=== PATIENT | male | born 1955 | race Caucasian/White ===

== ENCOUNTER 2016-05-28 19:37 | Emergency (ER) | payer MEDICAID ==
[2016-05-28 19:56] VITALS: BMI 26.6
--- NOTE | 2016-05-28 20:01 | EDPRACDOC ---
ED Seizure HPI - General Information Chief Complaint: Seizure Stated Complaint: SEIZURE Time Seen by Provider: 05/28/16 19:57 Information Source: Patient Mode Of Arrival: Ambulance Home Medications: Home Medications MetFORMIN (Immediate Release) [GLUCOPHAGE Immed Release] 500 mg PO BID(MISBAH) Lisinopril 10 mg PO DAILY #120 tablet 09/13/15 Levetiracetam [Keppra] 500 mg PO BID #60 tab 05/28/16 Spironolactone 50 mg PO DAILY #30 tablet 05/28/16 Allergies/Adverse Reactions: Allergies Allergy/AdvReac Type Severity Reaction Status Date / Time No Known Drug Allergies Allergy Unknown Unknown Verified 05/28/16 20:17 - 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 PATIENT HAS HAD 4 SEIZURES OVER THE LAST COUPLE OF YEARS. DOES NOT TAKES MEDS FOR THIS. 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 Witnessed: UNKNOWN Postictal: Yes Episodes: Reports: single episode today Compliant with Seizure Medication: Yes Seizure Type: Reports: [place] Prior to Seizure: Reports: Normal During Seizure: Reports: Deviation of Eyes, Loss of Consciousness Immediately After Seizure: Reports: Confusion Associated Signs & Symptoms: Reports: Confusion - [place] Coma scale Coma Scale Eye Opening: Spontaneous Coma Scale Motor: Obeys Commands Coma Scale Verbal: Oriented Coma Scale Total: 15 - Treatment Prior to ED Arrival Reported Medications/Treatment [facility] Treatment BLS IV No ED Past Medical History - History Reviewed Yes Nurses notes reviewed and agree except as marked Travel Outside of [place] in the Last 3 Months?: No - Patient Medical History Neurological History: Reports: Seizures. Denies: Cerebrovascular Accident Cardiac History: Reports: Hypertension, Hypercholesterolemia, Valvular Heart Disease GI/ History: Reports: Kidney (Renal Surgery), Urinary Tract Infection, Kidney Stones, Liver Failure (cirrhosis, treated hepatitis-C but still with residual Hep C.), Gastroesophageal Reflux Musculoskeletal History: Reports: Osteoarthritis Psychological History: Reports: Depression, Anxiety. Denies: Substance Use Disorder Systemic History: Reports: Diabetes (Type 2.). Denies: Cancer Surgical History: Reports: Cholecystectomy, Other (LIVER BX, removal kidney stones (Dr. Keith).) - Family Medical History Reports: Hypertension (FATHER), Diabetes (FATHER), Cancer (FATHER--LUNG CA, Brother-Throat). Denies: Stroke, Cardiac Disorders - Social Medical History Smoking Status: Heavy tobacco smoker (5 or more cigarettes/day or daily pipe/ cigar) Social History: Denies: Substance Use Disorder Lives With: Family Lives In: Home EDM Review of Systems - Review of Systems ROS Negative Except as Marked: Yes All systems reviewed and were negative except as marked Constitutional: No Symptoms Reported. negative: Fever, Chills, Weakness, Fatigue, Loss of Appetite Eyes: No Symptoms Reported. negative: Redness, Blurred Vision, Double Vision, Discharge, Pain, Light Sensitive, Photophobia Ears: No Symptoms Reported. negative: Pain, Hearing Loss, Drainage, Ear Pulling Throat: No Symptoms Reported. negative: Pain, Swelling Nose: No Symptoms Reported. negative: Congestion, Bleeding, Discharge, Injection, Swelling, Deformity, Ecchymosis, Tender, Abrasion, Laceration Mouth: No Symptoms Reported. negative: Pain, Drooling Respiratory: No Symptoms Reported. negative: Cough, Brassy Cough, Barky Cough, Shortness of Breath, Wheezing, Hemoptysis Cardiovascular: No Symptoms Reported. negative: Chest Pain, Palpitations, Syncope, Edema, Orthopnea, PND, Skin Mottling, Cyanosis Gastrointestinal: No Symptoms Reported. negative: Pain, Constipation, Nausea, Vomiting, Diarrhea, Melena, Formula Intolerance Genitourinary: No Symptoms Reported. negative: Dysuria, Hematuria, Frequency, Discharge, Bleeding, Testicular Pain, Neurological: Seizure. negative: Dizziness, Gait Difficulty, Headache, Numbness , Speech Difficulty, Weakness Musculoskeletal: No Symptoms Reported. negative: Neck, Chestwall, Ribs, Back, Shoulder, Arm, Elbow, Forearm, Wrist, Hand, Pelvis, Hip, Femur, Knee, Leg, Ankle , Foot Integumentary: No Symptoms Reported. negative: Itching, Rash, Bruising, Wound Allergic/Immunologic: No Symptoms Reported. negative: Hives, Itching Hematologic: No Symptoms Reported. negative: Lymphadenopathy, Easy Bruising, Easy Bleeding Endocrine: No Symptoms Reported. negative: Weight Gain, Weight Loss Psychiatric: No Symptoms Reported. negative: Anxiety, Depression, Hallucinations, Insomnia, Suicidal - Physical Exam Constitutional: Alert (Awake), No apparent distress Oriented to: Time, Person, Place Last recorded Vital Signs: Last Vital Signs Temp 98 F 05/28/16 19:48 Pulse 94 05/28/16 19:48 Resp 20 05/28/16 19:56 BP 154/64 05/28/16 19:48 Pulse Ox 100 05/28/16 19:48 Oxygen Pulse Oxygen Saturation 100 O2 Device Room Air Oxygen Flow Rate Fraction of Inspired Oxygen ( FIO2) - HEENT Head: Normal ( normocephalic) Eye Exam: Normal (PERRL, EOMI, Sclera white) Oropharynx: Normal (Pharynx:Moist without exudate,Gums-no swelling) Tympanic Membrane: Normal ENT EAC: Normal TMJ: Normal Nose: No Symptoms Reported (septum midline) Neck: Normal (FROM, trachea at midline) - Respiratory/Cardiovascular Respiratory: Normal - CTA (BBS clear to auscultation without adventitious sounds ) Cardiovascular: Normal (RRR without murmur, gallop or rub) - GI Auscultation: Normal (NABS) Palpation: Normal (Soft,No rebound or guarding, non distended) Tenderness: Non tender Arevalo's Sign: Negative - Musculoskeletal Back: Normal (Non-Tender) Extremities: Normal (Normal tone, Pulses 2+ No cyanosis or edema, FROM) - Integumentary Skin: Normal, Warm, Dry Lymphatics: Normal (no adenopathy) - Neurologic Memory Impaired: Normal Motor Function: Normal (Normal tone, Pulses 2+ No cyanosis or edema, FROM) Cranial Nerve: Normal (CN II-X11 intact sensation, strength 5/5) Cerebellar: Normal Mood Description: Normal Perception: Normal - Re-evaluation Re-evaluation 2 Re-evaluation Time: 21:50 (PATIENT HAD SECOND SEIZURE- BIT TONGUE. POST ICTAL) - Results 05/28/16 20:11 05/28/16 20:11 - EKG EKG #1 EKG Time: 21:54 -: Yes EKG interpreted by me Rate: bpm: 165 [place]: RAD Rhythm: ST Block: None Hypertrophy: None ST: Normal - Additional Information PATIENT ADMITTED TO NOT TAKING LACTULOSE BECAUSE HE HAS DIARRHEA Decision Time to Discharge: 21:19 - Departure Yes I personally saw and evaluated the patient. Disposition: Trans. to Other Hospital ([facility]) Condition: Stable Final Diagnosis: Seizure, Ventricular tachyarrhythmia Cirrhosis Qualifiers: Hepatic cirrhosis type: unspecified hepatic cirrhosis Ascites presence: with ascites Qualified Code(s): K74.60 - Unspecified cirrhosis of liver Instructions: Seizures Education/Counseling Given To: Patient Education/Counseling Given Regarding: Diagnosis, Treatment, Prognosis, Follow Up Referrals: Kyle Saldana MD [Staff Provider No Admit] - One Week None,No Provider [NonStaff] - One Week Zeyad Wong MD [NonStaff] - One Week Prescriptions: Levetiracetam [Keppra] 500 mg PO BID #60 tab Spironolactone 50 mg PO DAILY #30 tablet Decision to Transfer Time: 21:53 - Physician Consulted Hospitalist Time Called: 21:54 Provider Called: DR. MERCADO ([facility]) Time Fire Systems Inspector Returned Call: 21:54 ([facility]) Other Time Called: 22:44 Provider Called: [facility] (ALANNA MARTINI) Time Fire Systems Inspector Returned Call: 22:45 ([facility]) [facility] Time Called: 22:45 Provider Called: DR. JONES (ACCEPTING ON BEHALF OF DR. VARGHESE) Time Fire Systems Inspector Returned Call: 22:45 ([facility] AT [facility])
[2016-05-28 20:27] LABS: AUTOMATED BASOPHIL 0.7 % (0-2); AUTOMATED EOSINOPHIL 2.7 % (0-5); AUTOMATED LYMPH 12.3 % (17-44); AUTOMATED MONOCYTE 6.9 % (3-10); AUTOMATED NEUTROPHIL 77.4 % (45-76)
[2016-05-28 20:38] LABS: BLOOD UREA NITROGEN 12 MG/DL (9-20); CALC CORRECTED 9.6 MG/DL (8.4-10.2); CALCIUM 8.4 MG/DL (8.4-10.2); CALCULATED OSMOLALITY 273 MOs/Kg (270-290); CHLORIDE 111 mEq/L (98-107); GLUCOSE 183 MG/DL (70-99); SODIUM LEVEL 139 mEq/L (137-146); TOTAL PROTEIN 6.5 G/DL (6.3-8.2)
[2016-05-28] MEDS ORDERED: LACTULOSE 20 GM/30 ML ORAL SOLN PO ONE (21:03)
--- NOTE | 2016-05-28 21:18 | DIRPT ---
CLINICAL DATA: 60-year-old male with seizures EXAM: CT HEAD WITHOUT CONTRAST TECHNIQUE: Contiguous axial images were obtained from the base of the skull through the vertex without intravenous contrast. COMPARISON: CT dated 10/19/2015 FINDINGS: There is slight prominence of the ventricles and sulci compatible with age-related volume loss. Mild periventricular and deep white matter hypodensities represent chronic microvascular ischemic changes. There is no intracranial hemorrhage. No mass effect or midline shift identified. The visualized paranasal sinuses and mastoid air cells are well aerated. The calvarium is intact. IMPRESSION: No acute intracranial hemorrhage. Mild age-related atrophy and chronic microvascular ischemic disease. If symptoms persist and there are no contraindications, MRI may provide better evaluation if clinically indicated Electronically Signed By: Michael Webb M.D. On: 05/28/2016 21:15
[2016-05-28] MEDS ORDERED: SPIRONOLACTONE 50 MG TAB PO ONE (21:29)
[2016-05-28] MEDS ORDERED: LEVETIRACETAM 250 MG TAB PO ONE (21:30)
[2016-05-28] MEDS ORDERED: LORAZEPAM 2 MG/ML VIAL IV ONE (21:46)
[2016-05-28] MEDS ORDERED: LORAZEPAM 2 MG/ML VIAL ONE (21:47)
[2016-05-28] MEDS ORDERED: D5W IV ONE (21:59)
[2016-05-28] MEDS ORDERED: AMIODARONE IV ONE (21:59)
[2016-05-28] MEDS ORDERED: AMIODARONE 150 MG/3 ML VIAL IV ONE (21:59)
[2016-05-28] MEDS ORDERED: NS 1,000 ML IV ONE (23:35)
--- NOTE | 2016-05-29 00:13 | DIRPT ---
CLINICAL DATA: 60-year-old male with hypotension, seizure, and tachycardia. EXAM: PORTABLE CHEST 1 VIEW COMPARISON: Radiograph dated 02/26/2016 FINDINGS: Single-view of the chest demonstrate a focal area of airspace opacity at the left lung base concerning for developing pneumonia. A small left pleural effusion may be present. The right lung is clear. No pneumothorax. The cardiac silhouette is within normal limits. The osseous structures appear unremarkable. IMPRESSION: Left lung base opacity concerning for pneumonia. Followup PA and lateral chest X-ray is recommended in 3-4 weeks following trial of antibiotic therapy to ensure resolution and exclude underlying malignancy. Electronically Signed By: Michael Webb M.D. On: 05/29/2016 00:11
[2016-05-29 00:33] VITALS: BP 88/55; PULSE 136; TEMP 97.5
== END 2016-05-29 00:30 | disposition short-term general hospital (02) ==
LOC: ED 19:37
DX: R56.9 Unspecified convulsions (principal); R00.0 Tachycardia, unspecified; K74.60 Unspecified cirrhosis of liver
CPT/HCPCS: 36415; 70450; 71010; 80053; 82140; 85025; 96365; 96375; 99285; J0282; J1953; J2060; J3490; J7060